=== PATIENT | female | born 1945 | race Two or more races ===

== ENCOUNTER 2019-09-17 09:04 | Outpatient (CLI) | payer OTHER ==
[~2019-09-17 09:04] MED LIST: ALTACE5 MG; CATAFLAM50 MG; HYZAAR 100-121 UDTAB; ORPH100T PO; SIMVASTATIN5 MG; TRAMADOL HCL50 MG PO; ULTRAM ER100 MG PO
== END 2019-09-17 09:50 | disposition home or self-care (01) ==
LOC: NUCLEAR 09:04
PROVIDERS: ATTEND Psychiatry & Neurology Clinical Neurophysiology
DX: G45.8 Other transient cerebral ischemic attacks and related syndromes (principal)

== ENCOUNTER 2021-01-03 15:06 | Emergency (ER) | payer OTHER ==
[~2021-01-03] VITALS: Ht 160 cm; Wt 59.9 kg
[2021-01-03] MEDS ORDERED: SYNTHROID50 MCG (15:24)
[2021-01-03] MEDS ORDERED: BETAMETHASONE V15 GM TOP (18:05)
[2021-01-03] MEDS ORDERED: LOTRIMIN ULTRA12 GM TOP (18:05)
== END 2021-01-03 18:09 | disposition home or self-care (01) ==
LOC: ER 15:06
DX: L42 Pityriasis rosea (principal)

== ENCOUNTER 2021-04-01 07:22 | Outpatient (CLI) | payer OTHER ==
[~2021-04-01 07:22] MED LIST changes: +BETAMETHASONE V15 GM TOP; +DICLOFENAC POTA50 MG PO; +LOTRIMIN ULTRA12 GM TOP; +SYNTHROID50 MCG
== END 2021-04-01 07:26 | disposition home or self-care (01) ==
LOC: SONOGRAMA 07:22
PROVIDERS: ATTEND Internal Medicine Gastroenterology
DX: R10.84 Generalized abdominal pain (principal)

== ENCOUNTER 2021-07-26 23:50 | Inpatient (IN) | payer OTHER ==
[~2021-07-26] VITALS: Ht 160 cm; Wt 132.0 kg
== END 2021-08-03 16:05 | disposition home or self-care (01) | DRG 418 ==
LOC: ER 23:50 → MEDJ 07-27 10:12 → SEC-K 07-27 10:12 → MEDJ 07-27 13:08
PROVIDERS: Surgery; ADMIT Internal Medicine; ATTEND Internal Medicine
PROC: BF37ZZZ Magnetic Resonance Imaging (MRI) of Pancreas (ICD-10-PCS; 2021-07-27)
PROC: BW40ZZZ Ultrasonography of Abdomen (ICD-10-PCS; 2021-07-27)
PROC: 0WUF4JZ Supplement Abdominal Wall with Synthetic Substitute, Percutaneous Endoscopic Approach (ICD-10-PCS; 2021-07-31)
PROC: 0FT44ZZ Resection of Gallbladder, Percutaneous Endoscopic Approach (ICD-10-PCS; principal; 2021-07-31 07:00)
DX: K85.90 Acute pancreatitis without necrosis or infection, unspecified (principal); D62 Acute posthemorrhagic anemia; K80.12 Calculus of gallbladder with acute and chronic cholecystitis without obstruction; K42.0 Umbilical hernia with obstruction, without gangrene; N17.8 Other acute kidney failure; K85.10 Biliary acute pancreatitis without necrosis or infection; K43.9 Ventral hernia without obstruction or gangrene; K29.70 Gastritis, unspecified, without bleeding; E11.9 Type 2 diabetes mellitus without complications; Z20.822 Contact with and (suspected) exposure to COVID-19

== ENCOUNTER 2023-02-28 14:57 | Emergency (ER) | payer OTHER ==
[~2023-02-28] VITALS: Ht 152.4 cm; Wt 58.5 kg
[~2023-02-28 14:57] MED LIST changes: +NEURONTIN300 MG PO; +ULTRACET PO
[2023-02-28] MEDS ORDERED: GLUMETZA500 MG PO (15:49)
[2023-02-28] MEDS ORDERED: OMEPRAZOLE MAGN20 MG PO (15:49)
== END 2023-02-28 21:14 | disposition home or self-care (01) ==
LOC: ER 14:57
DX: H60.90 Unspecified otitis externa, unspecified ear (principal)
CPT/HCPCS: 96372 ×2; 99282; J0696; J1885

== ENCOUNTER 2023-12-29 08:49 | Emergency (ER) | payer OTHER ==
[~2023-12-29] VITALS: Ht 160 cm; Wt 60.8 kg
[~2023-12-29 08:49] MED LIST changes: +GLUMETZA500 MG PO; +OMEPRAZOLE MAGN20 MG PO
[2023-12-29] MEDS ORDERED: KETOROLAC TROMETHAMINE 30 MG VIAL IM STA (10:59)
== END 2023-12-29 11:11 | disposition home or self-care (01) ==
LOC: ER 08:51
DX: H60.8X2 Other otitis externa, left ear (principal); I10 Essential (primary) hypertension; E11.9 Type 2 diabetes mellitus without complications; Z79.84 Long term (current) use of oral hypoglycemic drugs
CPT/HCPCS: 96372; 99282; J1885